=== PATIENT | male | born 1940 | race Hispanic/Latino ===

== ENCOUNTER 2022-08-12 08:04 | Observation (INO) | payer MEDICARE ==
[2022-08-05 12:55] LABS: BASOPHILS % (AUTO) 0.5 % (0.0-5.0); EOSINOPHILS % (AUTO) 1.9 % (0.0-8.0); HEMATOCRIT 34.6 % (42-54); LYMPHOCYTES % (AUTO) 28.8 % (21.0-51.0); MEAN CORPUSCULAR HEMOGLOBIN 33.1 pg (27.0-33.0); MEAN CORPUSCULAR HGB CONC 32.7 g/dL (32.0-36.0); MEAN CORPUSCULAR VOLUME 101.5 fL (79-99); MONOCYTES % (AUTO) 12.5 % (3.0-13.0); NEUTROPHILS % (AUTO) 56.1 % (40.0-77.0); PLATELET COUNT (AUTO) 93 K/uL (130-400); RED BLOOD CELL COUNT(AUTO) 3.41 MIL/uL (4.50-6.20); RED CELL DISTRIBUTION WIDTH 13.5 % (11.0-15.5); WHITE BLOOD COUNT (AUTO) 4.2 K/uL (4.8-10.8)
[2022-08-05 13:03] VITALS: BP 115/58; PULSE 57; RESP 14
[2022-08-05 13:05] LABS: INR 1.26 (0.85-1.15); PROTHROMBIN TIME 13.6 SEC (9.6-11.6)
[2022-08-05 13:07] LABS: PARTIAL THROMBOPLASTIN TIME 35.9 SEC (26.3-35.5)
[2022-08-05 13:21] LABS: ALBUMIN 3.1 g/dL (3.5-5.0); CREATININE 4.2 mg/dL (0.5-1.5); POTASSIUM 5.2 mmol/L (3.5-5.1); TOTAL PROTEIN, SERUM 6.7 g/dL (6.0-8.3)
[~2022-08-12] VITALS: Ht 172.7 cm; Wt 86.6 kg
[2022-08-12] VITALS (12 sets, daily range): BP systolic 114–142; BP diastolic 62–76; PULSE 61–70; RESP 11–24
[~2022-08-12 08:04] MED LIST: APIX2.5T PO; ATOR10 PO; CARV25TA PO; CHOL500050 PO; DOXA8TAB81 PO; FEBU40TA3 PO; FINA5TAB41 PO; FOLI1TAB85 PO; LORA10TA7 PO; MAGN400T40 PO
[2022-08-12] MEDS ORDERED: 0.9%NACL 1000ML 1,000 ML IV ONE (08:11)
[2022-08-12 08:30] LABS: POTASSIUM 4.4 mmol/L (3.5-5.1)
[2022-08-12] MEDS ORDERED: IODIXANOL 320 MG/ML 100 ML VIAL ONE (10:48)
[2022-08-12] MEDS ORDERED: MIDAZOLAM HCL 1 MG/ML 2ML VIAL ONE (10:49)
[2022-08-12] MEDS ORDERED: HEPARIN 10,000 UNIT/10ML (1,000 UNIT/ML) VIAL ONE (10:49)
[2022-08-12] MEDS ORDERED: LIDOCAINE HCL 1% MDV 50ML VIAL ONE (10:49)
[2022-08-12] MEDS ORDERED: MEPERIDINE-PF 25 MG/ML SYG ONE (10:49)
[2022-08-12] MEDS: CARVEDILOL 25 MG TABLET PO SCH (20:44)
[2022-08-12] MEDS ORDERED: FEBUXOSTAT PO SCH (21:00)
[2022-08-13] VITALS (20 sets, daily range): BP systolic 124–141; BP diastolic 70–81; PULSE 69–73; RESP 18; TEMP 97.3–98.2
[2022-08-13 03:39] LABS: BASOPHILS % (AUTO) 0.7 % (0.0-5.0); EOSINOPHILS % (AUTO) 2.1 % (0.0-8.0); HEMATOCRIT 30.8 % (42-54); LYMPHOCYTES % (AUTO) 24.8 % (21.0-51.0); MEAN CORPUSCULAR HEMOGLOBIN 33.4 pg (27.0-33.0); MEAN CORPUSCULAR HGB CONC 33.8 g/dL (32.0-36.0); MONOCYTES % (AUTO) 9.6 % (3.0-13.0); NEUTROPHILS % (AUTO) 62.3 % (40.0-77.0); PLATELET COUNT (AUTO) 82 K/uL (130-400); RED BLOOD CELL COUNT(AUTO) 3.11 MIL/uL (4.50-6.20); WHITE BLOOD COUNT (AUTO) 4.4 K/uL (4.8-10.8)
[2022-08-13 04:00] LABS: CREATININE 4.6 mg/dL (0.5-1.5); POTASSIUM 4.5 mmol/L (3.5-5.1); TOTAL PROTEIN, SERUM 6.2 g/dL (6.0-8.3)
[2022-08-13] MEDS ORDERED: Vitamin B Complex/Vit C/Folic Acid PO SCH (09:00)
[2022-08-13] MEDS ORDERED: MAGNESIUM OXIDE 400 MG TABLET PO SCH (09:00)
[2022-08-13] MEDS ORDERED: NON-FORMULARY MEDICATION 1 EACH (Magnesium Oxide (Magnesium) 400 MG) PO SCH (09:00)
[2022-08-13] MEDS ORDERED: LORATADINE 10 MG TABLET PO SCH (09:00)
[2022-08-13] MEDS ORDERED: ATORVASTATIN 10 MG TABLET PO SCH (09:00)
[2022-08-13] MEDS ORDERED: FINASTERIDE 5 MG TABLET PO SCH (09:00)
[2022-08-13] MEDS ORDERED: DOXAZOSIN MESYLATE 8 MG PO SCH (09:00)
[2022-08-13] MEDS ORDERED: DOXAZOSIN MESYLATE 2 MG TABLET PO SCH (09:00)
[2022-08-13] MEDS ORDERED: NON-FORMULARY MEDICATION 1 EACH (Vit B Cmplx 3/FA/Vit C/Biotin (Rena-Vite Rx Tablet) 1 EAC PO SCH (09:00)
[2022-08-13] MEDS: CARVEDILOL 25 MG TABLET PO SCH (09:16)
[2022-08-13 21:13] LABS: HEPATITIS B SURFACE ANTIGEN Non-Reactive (Nonreactive)
[2022-08-19] MEDS ORDERED: CHOLECALCIFEROL 1250 MCG PO SCH (09:00)
== END 2022-08-13 18:35 | disposition home or self-care (01) ==
LOC: DAH 08:04 → DAHIP 08:05 → DAH 08:05 → 2DH 15:15
PROVIDERS: ADMIT Internal Medicine Cardiovascular Disease; ATTEND Internal Medicine Cardiovascular Disease
DX: I48.21 Permanent atrial fibrillation (principal); I25.10 Atherosclerotic heart disease of native coronary artery without angina pectoris; I12.0 Hypertensive chronic kidney disease with stage 5 chronic kidney disease or end stage renal disease; E11.22 Type 2 diabetes mellitus with diabetic chronic kidney disease; N18.6 End stage renal disease; D63.1 Anemia in chronic kidney disease; E11.51 Type 2 diabetes mellitus with diabetic peripheral angiopathy without gangrene; E78.5 Hyperlipidemia, unspecified; Z87.11 Personal history of peptic ulcer disease; Z99.2 Dependence on renal dialysis; Z79.899 Other long term (current) drug therapy
CPT/HCPCS: 80053 ×2; 85025 ×2; 85610; 85730; 36415 ×3; 93005 ×2; 33274; 80048; 86706; 87340; 86704; C1769; C1894; C1785; G0378 ×27; J7030; J2250; J2175; J1644 ×2; J3490; Q9967; A4215; A4223 ×3; A4222; A4221; A4663; A4216; A4606; 90935; 99156; 99157

== ENCOUNTER 2023-10-22 05:47 | Day surgery (SDC) | payer MEDICARE ==
[~2023-10-22] VITALS: Ht 170.2 cm; Wt 83.5 kg
[2023-10-22] VITALS (9 sets, daily range): BP systolic 118–154; BP diastolic 47–75; PULSE 66–80; RESP 15–17; TEMP 97.1–97.7
[~2023-10-22 05:47] MED LIST changes: -CARV25TA PO; -DOXA8TAB81 PO; -FEBU40TA3 PO; -LORA10TA7 PO; -MAGN400T40 PO; +MAGNESIUM PO
[2023-10-22] MEDS ORDERED: 0.9%NACL 1000ML 0 ML IV ONE (06:16)
[2023-10-22] MEDS: 0.9% NACL 500ML IV.SOLN 500 ML IV ONE (06:31)
[2023-10-22] MEDS ORDERED: proPOFol 10 MG/ML 20ML VIAL IV ONE (08:11)
[2023-10-22] MEDS ORDERED: LIDOCAINE PF 100MG/5ML (2%) SYRINGE 5ML ONE (08:13)
== END 2023-10-22 09:45 | disposition home or self-care (01) ==
LOC: ENDO 05:47 → DAH 05:47 → ENDO 09:45
PROVIDERS: ATTEND Internal Medicine Gastroenterology
DX: R19.4 Change in bowel habit (principal); K64.3 Fourth degree hemorrhoids; K64.4 Residual hemorrhoidal skin tags; K63.89 Other specified diseases of intestine; R15.9 Full incontinence of feces; I10 Essential (primary) hypertension; Z79.01 Long term (current) use of anticoagulants; Z99.2 Dependence on renal dialysis; Z79.899 Other long term (current) drug therapy
CPT/HCPCS: 45380; J7040; J2001; J2704; A4620; A7002; J7030; J3490